=== PATIENT | female | born 1990 | race Caucasian/White ===

== ENCOUNTER 2017-07-30 08:05 | Emergency (ER) | payer OTHER ==
[~2017-07-30] VITALS: Ht 157.5 cm; Wt 63.5 kg
[~2017-07-30 08:05] MED LIST: FLEXERIL PO; IBUPROFEN 800800 M1 PO; SEASONIQUE 0.11 EACH PO
[2017-07-30] MEDS ORDERED: OMEPRAZOLE10 MG PO (08:27)
[2017-07-30] MEDS ORDERED: FLAGYL500 MG PO (08:27)
[2017-07-30 08:43] LABS: ABSOLUTE BASOPHILS 0.1 thou/uL (0.0-0.2); ABSOLUTE EOSINOPHILS 0.1 thou/uL (0.0-0.7); ABSOLUTE LYMPHOCYTES 2.3 thou/uL (0.8-5.3); ABSOLUTE MONOCYTES 0.6 thou/uL (0.0-1.2); BASOPHILS 0.8 %; EOSINOPHILS 0.6 %; HEMATOCRIT 42.1 % (37.0-47.0); HEMOGLOBIN 14.6 gm/dL (12.0-15.0); LYMPHOCYTES 25.8 %; MCHC 34.6 g/dL (28.0-37.0); MCV 83.8 fL (80.0-100.0); MONOCYTES 6.8 %; MPV 7.7 fl. (7.2-11.1); NUCLEATED RBCS 0 /100WBC; PLATELET COUNT* 366 thou/uL (150-400); RBC 5.03 mil/uL (4.20-5.00); RDW-CV 13.5 % (10.5-14.5)
[2017-07-30 08:43] LABS: URINE BILIRUBIN NEGATIVE (Negative); URINE BLOOD TRACE (Negative); URINE CLARITY CLEAR; URINE COLOR YELLOW; URINE GLUCOSE-RANDOM NEGATIVE (Negative); URINE KETONES NEGATIVE (Negative); URINE LEUKOCYTES-REFLEX NEGATIVE (Negative); URINE NITRITE-REFLEX NEGATIVE (Negative); URINE PROTEIN NEGATIVE (Negative); URINE SPECIFIC GRAVITY 1.025 (1.005-1.030); URINE UROBILINOGEN 0.2 E.U./dl (0.2-1.0)
[2017-07-30 08:47] LABS: CALCIUM 8.6 mg/dL (8.5-10.1); POTASSIUM 3.3 mmol/L (3.5-5.1)
[2017-07-30 08:52] LABS: ALBUMIN 3.3 g/dL (3.4-5.0); TOTAL BILIRUBIN 0.3 mg/dL (<0.1-1.0); TOTAL PROTEIN 7.3 g/dL (6.4-8.2)
[2017-07-30 10:20] VITALS: BP 122/71
== END 2017-07-30 10:23 | disposition home or self-care (01) ==
LOC: M.ERS 08:05
PROVIDERS: Family Medicine
DX: R10.32 Left lower quadrant pain (principal)